=== PATIENT | female | born 2005 | race African-American/Black ===

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

== ENCOUNTER 2024-04-01 16:04 | Emergency (ER) | payer MEDICAID, OTHER ==
[~2024-04-01] VITALS: Ht 154.9 cm; Wt 57.0 kg
[2024-04-01 16:10] VITALS: O2SAT 100
[2024-04-01 16:12] VITALS: BP 134/79; PULSE 86; RESP 18; TEMP 98.1; O2SAT 98
[2024-04-01 17:34] LABS: BASOPHILS % 0.5 % (0.0-2.0); EOSINOPHILS % 0.7 % (0.0-5.0); HEMATOCRIT. 38.2 % (36.0-48.0); HEMOGLOBIN. 12.5 g/dL (12.0-16.0); MEAN CORPUSCULAR HEMOGLOBIN 28.6 pg (28.0-32.0); MEAN CORPUSCULAR HGB CONC 32.6 g/dL (31.0-37.0); MEAN CORPUSCULAR VOLUME 87.6 fL (81.0-99.0); MEAN PLATELET VOLUME 7.8 fl (7.4-10.4); MONOCYTES % 7.4 % (2.0-8.0); NEUTROPHILS % 54.4 % (40.0-76.0); PLATELET 289 x1000/uL (130-400); RED BLOOD CELL COUNT 4.36 mill/uL (4.2-5.4); RED CELL DISTRIBUTION WIDTH 14.4 % (11.6-14.6)
[2024-04-01 18:08] LABS: HCG SCREEN POSITIVE
[2024-04-01 19:02] LABS: CLARITY URINE CLOUDY (CLEAR); COLOR URINE DARK YELLOW (YELLOW); GLUCOSE URINE NEGATIVE (NEGATIVE); KETONES URINE 2+ (NEGATIVE); LEUKOCYTE ESTERASE URINE TRACE (NEGATIVE); NITRITE URINE NEGATIVE (NEGATIVE); OCCULT BLOOD URINE TRACE (NEGATIVE); PH URINE 5.5 (4.5-8.0); PROTEIN URINE 3+ (NEGATIVE); SPECIFIC GRAVITY URINE 1.039 (1.005-1.030)
[2024-04-01 19:32] LABS: BACTERIA URINE NONE SEEN; HYALINE CASTS URINE 0-5 /lpf; RBC URINE 0-2 /hpf (0-2); SQUAMOUS EPITHELIAL CELL URINE FEW /lpf (RARE/1+); WBC URINE 0-2 /hpf (0-2); YEAST URINE NONE SEEN
== END 2024-04-01 19:31 | disposition home or self-care (01) ==
LOC: ER 16:04
DX: O03.9 Complete or unspecified spontaneous abortion without complication (principal); J45.909 Unspecified asthma, uncomplicated; Z3A.09 9 weeks gestation of pregnancy
CPT/HCPCS: 36415; 76801; 81003; 81025; 84702; 84703; 85025; 86850; 86900; 99284